=== PATIENT | female | born 1965 | race Caucasian/White ===

== ENCOUNTER 2019-05-09 13:46 | Outpatient (RCR) | payer OTHER, SELFPAY | END 2019-08-07 23:59 | disposition home or self-care (01) | LOC: ANHDMC 13:46 | PROVIDERS: PCP Family Medicine | DX: E11.9 Type 2 diabetes mellitus without complications (principal); Z71.89 Other specified counseling | CPT/HCPCS: G0108 ==

== ENCOUNTER 2019-10-26 07:57 | Outpatient (CLI) | payer OTHER, SELFPAY ==
--- NOTE | ~2019-10-26 | XR_ITS ---
XR foot LT min 3V DATE: 10/26/2019 08:40 INDICATION: Medial left foot pain TECHNIQUE: 4 views COMPARISON: None FINDINGS: Plantar calcaneal enthesopathy, without evidence of periostitis or erosive change. No fracture, dislocation, periosteal reaction or bone destruction. Joint spaces are preserved. No ero sive changes evident. IMPRESSION: Plantar calcaneal enthesopathy Reviewed, dictated and finalized at location A.
[2019-10-26 08:29] LABS: Alanine Aminotransferase 15 U/L (4-35); Blood Urea Nitrogen 11 mg/dL (7-17); Calcium 9.3 mg/dL (8.4-10.2); Carbon Dioxide 30 mmol/L (22-30); Chloride 102 mmol/L (98-107); Cholesterol 121 mg/dL (0-200); Estimated Glomerular Filt Rate > 60; Glucose 149 mg/dL (65-105); HDL Direct 44 mg/dL; Potassium 4.4 mmol/L (3.4-5.0); Sodium 136 mmol/L (137-145); Triglycerides 151 mg/dL (<150)
[2019-10-26 08:40] LABS: LDL Cholesterol Direct 50 mg/dL
[2019-10-26 08:58] LABS: Vitamin D 25 Hydroxy 53.9 ng/mL
== END 2019-10-26 07:58 | disposition home or self-care (01) ==
PROVIDERS: PCP Family Medicine; Visit Provider Family Medicine
DX: E78.5 Hyperlipidemia, unspecified (principal); I10 Essential (primary) hypertension; E55.9 Vitamin D deficiency, unspecified; M79.672 Pain in left foot; M77.32 Calcaneal spur, left foot
CPT/HCPCS: 36415; 73630; 80048; 80061; 82306; 84460

== ENCOUNTER 2020-03-29 08:53 | Outpatient (CLI) | payer OTHER, SELFPAY ==
[2020-03-29 09:38] LABS: Basophils Absolute Auto 0.1 K/mm3 (0.0-0.1); Basophils Percent Auto 0.6 % (0.2-1.2); Eosinophils Absolute Auto 0.4 K/mm3 (0-0.3); Eosinophils Percent Auto 4.7 % (0-4.4); Hematocrit 38.2 % (37.0-47.0); Hemoglobin 12.4 g/dL (12.0-15.0); Immature Granulocyte Absolute 0.02 K/mm3 (0.00-0.031); Immature Granulocyte Percent A 0.2 % (0-0.5); Lymphocytes Absolute Auto 2.42 K/mm3 (0.9-3.2); Lymphocytes Percent Auto 25.8 % (18.3-44.2); Mean Corpuscular HGB Conc 32.5 g/dl (32-36); Mean Corpuscular Hemoglobin 27.3 pg (26-34); Mean Corpuscular Volume 84.1 fl (80-100); Mean Platelet Volume 9.2 fl (7.4-10.4); Monocytes Absolute Auto 0.5 K/mm3 (0.1-0.6); Monocytes Percent Auto 5.5 % (2.6-8.5); Neutrophils Absolute Auto 5.9 K/mm3 (1.3-6.7); Neutrophils Percent Auto 63.2 % (45.5-73.1); Platelet Count Result 245 k/mm3 (150-375); Red Blood Count 4.54 M/mm3 (4.2-5.4); Red Cell Distribution Width 14.7 % (11.5-14.5); White Blood Count 9.4 K/mm3 (4.5-10.0)
[2020-03-29 09:49] LABS: Alanine Aminotransferase 15 U/L (4-35); CRP 0.9 mg/dL (<1.0)
[2020-03-29 10:15] LABS: Creatinine Urine 115.6 mg/dL
[2020-03-29 10:18] LABS: MALB Creatinine Ratio 25.5 mg/g (0-30); Microalbumin Urine Random 29.5 mg/L (0-16.7)
[2020-03-29 10:52] LABS: Folic Acid 5.3 ng/mL (2.76->20)
[2020-03-29 11:27] LABS: Erythrocyte Sedimentation Rate 18 mm/hr (0-20)
[2020-03-29 12:42] LABS: Anion Gap 9 mmol/L (8-16); Blood Urea Nitrogen 13 mg/dL (7-17); Calcium 9.3 mg/dL (8.4-10.2); Carbon Dioxide 26 mmol/L (22-30); Chloride 104 mmol/L (98-107); Cholesterol 137 mg/dL (0-200); Estimated Glomerular Filt Rate > 60; Glucose 136 mg/dL (65-105); HDL Direct 61 mg/dL; Potassium 4.6 mmol/L (3.4-5.0); Sodium 139 mmol/L (137-145); Triglycerides 119 mg/dL (<150)
[2020-03-29 12:53] LABS: LDL Cholesterol Direct 56 mg/dL
== END 2020-03-29 08:54 | disposition home or self-care (01) ==
PROVIDERS: PCP Family Medicine; Visit Provider Internal Medicine Endocrinology, Diabetes & Metabolism
DX: E78.5 Hyperlipidemia, unspecified (principal); F34.1 Dysthymic disorder; R53.83 Other fatigue
CPT/HCPCS: 36415; 80048; 80061; 82043; 82607; 82746; 84443; 84460; 85025; 85652; 86038; 86039; 86140

== ENCOUNTER → 2020-05-31 07:16 | Outpatient (CLI) | payer OTHER, SELFPAY ==
--- NOTE | ~2020-05-31 | MM_ITS ---
EXAMINATION: MM screening zaki BI w chago HISTORY: Screening mammogram TECHNIQUE: Craniocaudal and mediolateral oblique 3-D tomosynthesis images were obtained and synthetic 2-D images were generated. CAD analysis was submitted and interpreted. COMPARISON: 02/20/2019, 12/07/2017, 04/30/2015 bilateral digital screening mammogram examinations BREAST PARENCHYMAL COMPOSITION: There are scattered areas of fibroglandular density. FINDINGS: There are scattered bilateral benign calcifications. There is no evidence of suspicious mas s, calcification, or architectural distortion to suggest malignancy in either breast. There has been no suspicious interval change. IMPRESSION: 1. No mammographic evidence of malignancy. 2. Recommend routine screening mammography in one year. BI-RADS Category 2: Benign finding(s). Reviewed, dictated and finalized at location B. [employer]
== END ==
PROVIDERS: Visit Provider Obstetrics & Gynecology Gynecology
DX: Z12.31 Encounter for screening mammogram for malignant neoplasm of breast (principal)
CPT/HCPCS: 77063; 77067

== ENCOUNTER 2020-12-19 15:14 | Observation (INO) | payer OTHER, SELFPAY ==
[2020-12-19] VITALS (7 sets, daily range): BP systolic 127–178; BP diastolic 63–106; PULSE 78–104; RESP 16–30; TEMP 36.1–36.5; O2SAT 95–99; BMI 43.7
--- NOTE | ~2020-12-19 | XR_ITS ---
EXAMINATION: XR chest 2V DATE: 12/19/2020 15:47 INDICATION: Left-sided chest pain TECHNIQUE: AP and lateral views of the chest are obtained. COMPARISON: 10/21/2018 FINDINGS: The lungs are free of acute opacities. There is no pleural effusion or pneumothorax. The he art size is normal. There are changes of prior cardiac valve surgery. There is mild thoracic spondylo sis. IMPRESSION: 1. No acute cardiopulmonary abnormality. Reviewed, dictated and finalized at location A.
--- NOTE | 2020-12-19 15:30 | ECG_ITS ---
Measurements Intervals [place] Rate: 82 P: 62 MA: 156 QRS: -6 QRSD: 94 T: 82 QT: 377 QTc: 441 Interpretive Statements SINUS RHYTHM ATRIAL AND VENTRICULAR PREMATURE COMPLEXES LEFT VENTRICULAR HYPERTROPHY WITH ST-T CHANGE POOR R WAVE PROGRESSION, ANTERIOR LEADS INFERIOR INFARCT, AGE INDETERMINATE BASELINE ARTIFACT- I, II, III, AVR, AVL, AVF, V1, V6 ABNORMAL ECG Electronically Signed On 12-19-2020 16:59:19 CDT by Beka Ramsay D.O.
[2020-12-19 16:20] LABS: Basophils Absolute Auto 0.1 K/mm3 (0.0-0.1); Basophils Percent Auto 0.4 % (0.2-1.2); Eosinophils Absolute Auto 0.1 K/mm3 (0-0.3); Eosinophils Percent Auto 0.6 % (0-4.4); Hematocrit 43.2 % (37.0-47.0); Hemoglobin 14.1 g/dL (12.0-15.0); Immature Granulocyte Absolute 0.04 K/mm3 (0.00-0.031); Immature Granulocyte Percent A 0.3 % (0-0.5); Lymphocytes Absolute Auto 3.58 K/mm3 (0.9-3.2); Lymphocytes Percent Auto 30.3 % (18.3-44.2); Mean Corpuscular HGB Conc 32.6 g/dl (32-36); Mean Corpuscular Hemoglobin 28.6 pg (26-34); Mean Corpuscular Volume 87.6 fl (80-100); Mean Platelet Volume 9.5 fl (7.4-10.4); Monocytes Absolute Auto 0.5 K/mm3 (0.1-0.6); Monocytes Percent Auto 4.1 % (2.6-8.5); Neutrophils Absolute Auto 7.6 K/mm3 (1.3-6.7); Neutrophils Percent Auto 64.3 % (45.5-73.1); Platelet Count Result 243 k/mm3 (150-375); Red Blood Count 4.93 M/mm3 (4.2-5.4); Red Cell Distribution Width 14.7 % (11.5-14.5); White Blood Count 11.8 K/mm3 (4.5-10.0)
[2020-12-19 16:23] LABS: Prothrombin Time 22.2 Seconds (11.1-14.7)
[2020-12-19 16:24] LABS: Anion Gap 12 mmol/L (8-16); Blood Urea Nitrogen 16 mg/dL (7-17); Calcium 10.5 mg/dL (8.4-10.2); Carbon Dioxide 21 mmol/L (22-30); Chloride 104 mmol/L (98-107); Estimated CRCL calculation 90 ml/min; Estimated Glomerular Filt Rate > 60; Glucose 181 mg/dL (65-110); Potassium 4.6 mmol/L (3.4-5.0); Sodium 137 mmol/L (137-145)
[2020-12-19 16:25] LABS: Partial Thromboplastin Time 33.2 SECONDS (22.3-36.8)
[2020-12-19] MEDS: ASPIRIN 81 MG CHEWABLE TABLET 324 MG PO (18:07)
--- NOTE | 2020-12-19 18:52 | ED.GENADULT ---
HPI - General Adult General Chief complaint: Chest Pain Stated complaint: CP x 1 week Time Seen by Provider: 12/19/20 17:57 Source: patient History of Present Illness HPI narrative: Patient is a 55 y/o female complaining of intermittent chest pain starting last Wednesday. She describes her pain as sharp and twinge . She states that her pain is located in midsternal area with radiation to left neck. She rates her pain as 8/10. There is no known alleviating or exacerbating factor. She has no SOB or cough. Of note, she had CABG and AVR done 3 years ago. Related Data Home Medications Medication Instructions Recorded Confirmed aspirin 81 mg tablet,delayed 81 mg PO DAILY 08/02/19 07/28/20 release metoprolol tartrate 25 mg tablet 25 mg PO BID tablet 08/02/19 07/28/20 trazodone 100 mg tablet 300 mg PO DAILY tablet 11/07/19 07/28/20 lamotrigine 100 mg tablet 100 mg PO DAILY 02/15/20 07/28/20 alprazolam 0.25 mg tablet 0.25 mg PO .prn tablet 04/30/20 07/28/20 warfarin 3 mg tablet 3 mg PO DAILY tablet 04/30/20 07/28/20 folic acid 1 mg tablet 1 mg PO DAILY 06/20/20 07/28/20 methotrexate sodium 2.5 mg tablet 2.5 mg PO WEEKLY 06/20/20 07/28/20 multivitamin with minerals-folic 1 tablet PO DAILY 06/20/20 07/28/20 acid 120 mcg chewable tablet prednisolone 5 mg tablet 5 mg PO DAILY 06/20/20 07/28/20 olopatadine 0.1 % eye drops 1 drp OPHTHALMIC (EYE) BID PRN 09/09/20 warfarin 5 mg tablet 5 mg PO QMWF 09/09/20 Lasix 20 mg BYMOUTH DAILY 12/19/20 12/19/20 tramadol 50 mg BYMOUTH TID PRN 12/19/20 12/19/20 Allergies Allergy/AdvReac Type Severity Reaction Status Date / Time No Known Allergies Allergy Verified 07/23/20 08:34 Review of Systems Constitutional: Constitutional: Denies chills, Denies fever(s), Denies headache(s) and Denies weakness Eyes: Eyes: Denies blurry vision ENT: Denies headache(s) and Denies neck pain Cardiovascular: Cardiovascular: Reports chest pain and Denies dyspnea Respiratory: Respiratory: Denies cough and Denies dyspnea Gastrointestinal: Gastrointestinal: Denies abdominal pain, Denies diarrhea, Denies nausea and Denies vomiting Genitourinary: Genitourinary: Denies hematuria and Denies dysuria Musculoskeletal: Musculoskeletal: Denies back pain and Denies neck pain Neurologic: Denies headache(s) and Denies weakness PMFSH Past Medical History Medical History Aortic regurgitation Arthritis Benign essential HTN CAD in [place] artery Cervical dysplasia Depression Depressive psychosis Diabetes Diabetic retinopathy Fatty liver Heart disease Hyperlipidemia Kidney disease Liver disease Morbid obesity Surgical History Surgical History H/O aortic valve replacement History of open heart surgery 2018 Hx of CABG Hx of hysterectomy Family History Family History Mother Breast cancer COPD (chronic obstructive pulmonary disease) Other Depression Diabetes mellitus Family history of alcoholism Family history of arthritis Family history of attention deficit hyperactivity disorder (ADHD) Family history of blood dyscrasia Family history of coronary artery disease Family history of kidney disease Family history of malignant neoplasm of breast in first degree relative Social History Social History Social History: Smoking status: Never smoker Second hand tobacco smoke exposure: Yes Alcohol intake: current Drinks per week: 2 Substance use: never Substance use type: does not use Gender identity (if verbalized by the patient): Female Spiritual care concerns: No Exam Const: General: no acute distress and well developed Orientation/consciousness: oriented to person, oriented to place, oriented to time and patient oriented x3 HENMT: Head: normocephalic Ears
[2020-12-19 19:03] LABS: Troponin I 0.019 ng/mL (0.000-0.034)
[2020-12-19 19:06] LABS: D Dimer 0.27 ug/mL (<0.48)
--- NOTE | 2020-12-19 19:20 | PC.NURSE ---
This RN called to pts room as pt is having an anxiety attack. Pts states she has PTSD from being here and needs to go home I cant stand all the wires . Pt is clutching chest and is refusing to sit down. Pt is very tearful. Convinced pt to sit back in bed and notified Dr. Esposito. into pt room. Also informed oncoming night nurse of this
[2020-12-19] MEDS: LORazepam INJ (*CRX) 2 MG/ML VIAL 1 MG IV PUSH ×2 (19:41→20:17)
--- NOTE | 2020-12-19 21:35 | ADMGEN ---
This patient, Linnea Frank, was admitted to IMU Room 212-01 at 2130. Patient/family oriented to hospital policies and general routines including ID bracelet, bed and alarms, visiting hours, pain management, procedures, bathroom and other care routines, personal items, smoking policy, room service/diet, and visiting hours. Information on how to activate the Rapid Response Team has been discussed. Patient/Family are encouraged to report perceived risks to care and to ask questions if they do not understand what they are told or what they should do.
--- NOTE | 2020-12-19 22:07 | PC.NURSE ---
patient is inappropriate with comments, will not cooperate. will not stay in bed. is looking out the window and playing with the blinds. patient is climbing all over the bed, literally. patient is extremely confused about most things but can answer some things appropriatly.
[2020-12-19 23:45] LABS: Troponin I 0.018 ng/mL (0.000-0.034)
[2020-12-20] VITALS (7 sets, daily range): BP systolic 124–153; BP diastolic 70–84; PULSE 78–96; RESP 16–20; TEMP 36.1–36.8; O2SAT 94–99
--- NOTE | 2020-12-20 01:17 | PM.IMHP ---
H&P: HPI History of Present Illness Date/Time: 12/20/20 01:17 Chief Complaint: CHEST PAIN Narrative: THIS IS A 55-YEAR-OLD FEMALE WITH PAST MEDICAL HISTORY SIGNIFICANT FOR CORONARY ARTERY DISEASE, CORONARY ARTERY BYPASS GRAFT AND AORTIC VALVE REPAIR, TYPE 2 DIABETES MELLITUS, DYSLIPIDEMIA, DIABETIC RETINOPATHY, OBESITY, BENIGN ESSENTIAL HYPERTENSION. PATIENT PRESENTED TODAY DUE TO CHEST PAIN IT IS LOCALIZED IN THE PRECORDIAL AREA HOWEVER CHANGES WITH DEEP INSPIRATION AND MOVEMENT THIS STARTED EARLIER IN THE DAY SHE WAITED OUT HOPING THAT WILL GO AWAY IN [place] [facility] DID NOT DECIDED TO COME TO THE EMERGENCY ROOM. AT THE TIME OF MY VISIT PATIENT WAS VERY DISTRAUGHT STATING THAT NOBODY WOULD BELIEVE HER DOES SHE HAS CHEST PAIN THE LAST TIME SHE WAS HERE NO VERY BELIEVE HER AND SHE ENDED UP GETTING AND STERNOTOMY AND A BYPASS. PRELIMINARY WORKUP HAS BEEN ESSENTIALLY NONREVEALING TROPONINS HAVE BEEN WITHIN NORMAL LIMITS CHEST X-RAY WITH NO ACUTE CARDIOPULMONARY CHANGES. NO TELEMETRY CHANGES WELL. Review of Systems Review of Systems: PATIENT PRESENTED TO THE EMERGENCY ROOM WITH CHEST PAIN WHICH IS IN THE PRECORDIAL AREA WHICH IS REPRODUCIBLE TO TOUCH AND WITH DEEP INSPIRATION Constitutional: Constitutional: Denies chills and Denies fever(s) Eyes: Eyes: Denies change in vision ENT: Denies dysphagia, Denies nasal congestion, Denies nasal discharge, Denies nasal obstruction and Denies odynophagia Cardiovascular: Cardiovascular: Reports chest pain, Reports chest pain at rest, Denies syncope, Denies rapid heart rate, Denies irregular heart rhythm, Denies lightheadedness, Denies radiating jaw, neck or arm pain, Denies palpitations, Denies dyspnea and Denies dyspnea on exertion Respiratory: Respiratory: Denies cough and Denies dyspnea Gastrointestinal: Gastrointestinal: Denies abdominal pain, Denies diarrhea, Denies nausea and Denies vomiting Genitourinary: Genitourinary: Reports no additional female genitourinary complaints Musculoskeletal: Musculoskeletal: Reports no additional musculoskeletal complaints Integumentary/Breasts: Skin/Breast: Reports system reviewed and no additional complaints, except as docu Neurologic: Reports system reviewed and no additional complaints, except as documented Psychiatric: Psychiatric: Reports no additional psychiatric complaints Endocrine: Endocrine: Reports no additional endocrine complaints Hematologic/Lymphatic: Hematologic/Lymphatic: Reports no additional hematologic/lymphatic complaints Allergic/Immunologic: Allergic/Immunologic: Reports no additional allergic/immunologic complaints PMFSH Past Medical History Medical History Aortic regurgitation Arthritis Benign essential HTN CAD in [place] artery Cervical dysplasia Depression Depressive psychosis Diabetes Diabetic retinopathy Fatty liver Heart disease Hyperlipidemia Kidney disease Liver disease Morbid obesity Surgical History Surgical History H/O aortic valve replacement History of open heart surgery 2018 Hx of CABG Hx of hysterectomy Family History Family History Mother Breast cancer COPD (chronic obstructive pulmonary disease) Other Depression Diabetes mellitus Family history of alcoholism Family history of arthritis Family history of attention deficit hyperactivity disorder (ADHD) Family history of blood dyscrasia Family history of coronary artery disease Family history of kidney disease Family history of malignant neoplasm of breast in first degree relative Social History Social History Social History: Smoking status: Never smoker Second hand tobacco smoke exposure: Yes Alcohol intake: current Drinks per week: 2 Substance use: never Substance use type: does not use Gender ident
--- NOTE | 2020-12-20 08:30 | PM.CNCAR ---
Assessment and Plan Additional Plan this is a 55-year-old lady with valvular heart disease and coronary disease having undergone bypass grafting and aortic valve replacement about 3 years ago. She is doing well since her operation her principal significant comorbidity continues to be ongoing morbid obesity and diabetes. She has been experiencing episodes of chest pain for about a week now after very atypical sounding and not very suggestive of myocardial ischemia in my opinion. In the face of this her electrocardiogram and biomarkers are benign. At this point I believe she can be discharged for outpatient follow-up. Given the recent see of her surgical revascularization and the atypical nature of the symptoms I do not believe we need to keep her in the hospital for further ischemia testing. I will ensure that appropriate follow-up in the office with Dr. escoto is scheduled. Francisco Hewitt MD [facility] History of Present Illness History of Present Illness Consult date/time: 12/20/20 08:30 Consult reason: chest pain Reason For Visit: Chest Pain Narrative: this is a 55-year-old woman that I am seeing at the request of the hospitalists today because of chest pain. She is unknown to me prior to this encounter but has a history of heart disease and is known to Dr. Llamas of our practice. Apparently she has been having episodes of chest pain since last week Wednesday she has been describes episodes of intermittent unpredictable pinching like sensation in the left precordium she describes it as a momentary pinching like pain that comes and goes in an unpredictable manner it is not occurring in in the exertional fashion. It is not associated with any shortness of breath diaphoresis nausea or vomiting. There is no radiation of this pain to any other location. Because of her cardiac history and this is been going on for a week she decided come to the emergency room and be evaluated. Her emergency room evaluation was unrevealing. It was determined to put her in the hospital overnight she then became very anxious when the ER physician told her that she needed to be hospitalized and became somewhat tearful apparently. She has no other complaints at this time she denies any other types of chest pain she denies any orthopnea PND accumulating edema. She has occasional palpitations but that is nothing new she has never had a syncopal episode. Her cardiac history dates back to 2018 when she was here at [facility] with ischemic chest pain and also with ventricular arrhythmias. She was apparently found to have multivessel coronary artery disease and significant aortic valve stenosis and was referred to [facility] for treatment. She underwent a multivessel bypass operation and a mechanical aortic valve prosthesis with a [employer] prosthesis. She has been on Coumadin since then and follows her own INR at home. Her other significant health problems include diabetes mellitus and morbid obesity. She is very frustrated that she has not been able to lose much weight since her heart surgery. Her BMI is still 43.7. she states that she was experiencing some palpitations in the last couple of years since her surgery and because of concerns of these symptoms a stress test was done in the outpatient setting in the office in the nuclear [employer] study which was negative by her report. Review of Systems Constitutional: Constitutional: Reports no additional constitutional complaints Eyes: Eyes: Reports no additional eye complaints ENT: Reports system reviewed and no additional complaints, except as documented Cardiovascular: Cardiovascular: Reports as per HPI Respiratory: Respiratory: Reports no additional respiratory complaints Gastrointestinal: Gastrointestinal: Reports no additional gastrointestinal complaints Musculoskeletal: Musculoskeletal: Reports arthralgias Neurologic: Reports system reviewed and no additional complaints, except a
--- NOTE | 2020-12-20 09:15 | PM.SD2 ---
Same Day Admit/Disch: HPI History of Present Illness Chief complaint: Chest Pain Narrative: Linnea Frank is a 55 year old female Narrative: THIS IS A 55-YEAR-OLD FEMALE WITH PAST MEDICAL HISTORY SIGNIFICANT FOR CORONARY ARTERY DISEASE, CORONARY ARTERY BYPASS GRAFT AND AORTIC VALVE REPAIR, TYPE 2 DIABETES MELLITUS, DYSLIPIDEMIA, DIABETIC RETINOPATHY, OBESITY, BENIGN ESSENTIAL HYPERTENSION. PATIENT PRESENTED TODAY DUE TO CHEST PAIN IT IS LOCALIZED IN THE PRECORDIAL AREA HOWEVER CHANGES WITH DEEP INSPIRATION AND MOVEMENT THIS STARTED EARLIER IN THE DAY SHE WAITED OUT HOPING THAT WILL GO AWAY IN [place] [facility] DID NOT DECIDED TO COME TO THE EMERGENCY ROOM. AT THE TIME OF MY VISIT PATIENT WAS VERY DISTRAUGHT STATING THAT NOBODY WOULD BELIEVE HER DOES SHE HAS CHEST PAIN THE LAST TIME SHE WAS HERE NO VERY BELIEVE HER AND SHE ENDED UP GETTING AND STERNOTOMY AND A BYPASS. PRELIMINARY WORKUP HAS BEEN ESSENTIALLY NONREVEALING TROPONINS HAVE BEEN WITHIN NORMAL LIMITS CHEST X-RAY WITH NO ACUTE CARDIOPULMONARY CHANGES. NO TELEMETRY CHANGES WELL. [facility] Past Medical History Medical History Aortic regurgitation Arthritis Benign essential HTN CAD in [place] artery Cervical dysplasia Depression Depressive psychosis Diabetes Diabetic retinopathy Fatty liver Heart disease Hyperlipidemia Kidney disease Liver disease Morbid obesity Surgical History Surgical History H/O aortic valve replacement History of open heart surgery 2018 Hx of CABG Hx of hysterectomy Family History Family History Mother Breast cancer COPD (chronic obstructive pulmonary disease) Other Depression Diabetes mellitus Family history of alcoholism Family history of arthritis Family history of attention deficit hyperactivity disorder (ADHD) Family history of blood dyscrasia Family history of coronary artery disease Family history of kidney disease Family history of malignant neoplasm of breast in first degree relative Social History Social History Social History: Smoking status: Never smoker Second hand tobacco smoke exposure: Yes Alcohol intake: current Drinks per week: 2 Substance use: never Substance use type: does not use Gender identity (if verbalized by the patient): Female Spiritual care concerns: No Same Day Admit/Disch: Med Pre-admit Medications Home Medications Medication Instructions Recorded Confirmed Type aspirin 81 mg tablet,delayed 81 mg PO DAILY 08/02/19 12/19/20 History release metoprolol tartrate 25 mg tablet 25 mg PO BID tablet 08/02/19 12/19/20 History trazodone 100 mg tablet 300 mg PO DAILY tablet 11/07/19 12/19/20 History lamotrigine 100 mg tablet 100 mg PO DAILY 02/15/20 12/19/20 History alprazolam 0.25 mg tablet 0.25 mg PO .prn tablet 04/30/20 12/19/20 History warfarin 3 mg tablet 3 mg PO DAILY tablet 04/30/20 12/19/20 History blood-glucose sensor #9 each 06/12/20 09/09/20 Rx blood-glucose transmitter #3 each 06/12/20 09/09/20 Rx blood sugar diagnostic #300 ea 06/14/20 07/28/20 Rx folic acid 1 mg tablet 1 mg PO DAILY 06/20/20 12/19/20 History methotrexate sodium 2.5 mg tablet 2.5 mg PO WEEKLY 06/20/20 12/19/20 History multivitamin with minerals-folic 1 tablet PO DAILY 06/20/20 12/19/20 History acid 120 mcg chewable tablet prednisolone 5 mg tablet 5 mg PO DAILY 06/20/20 12/19/20 History linaclotide 290 mcg capsule 290 mcg PO DAILY #30 cap 07/23/20 07/23/20 Rx insulin lispro 100 unit/mL See Rx Instructions CONTINUOUS 09/09/20 12/19/20 Rx subcutaneous solution SUBCUTANEOUS INFUSION DAILY #90 ml metformin 500 mg tablet 1,000 mg PO BID #360 tablet 09/09/20 12/19/20 Rx olopatadine 0.1 % eye drops 1 drp OPHTHALMIC (EYE) BID PRN 09/09/20 History semaglutide 1 mg/dose (2 mg/1.5 1 mg SUBC
== END 2020-12-20 10:06 | disposition home or self-care (01) ==
LOC: ANHED 18:06 → ANHIMU 23:02
PROVIDERS: Admitting Provider Internal Medicine; Emergency Provider Emergency Medicine; PCP Family Medicine; Visit Provider Hospitalist
DX: R07.9 Chest pain, unspecified (principal); I10 Essential (primary) hypertension; I25.10 Atherosclerotic heart disease of native coronary artery without angina pectoris; E11.319 Type 2 diabetes mellitus with unspecified diabetic retinopathy without macular edema; E78.5 Hyperlipidemia, unspecified; E66.01 Morbid (severe) obesity due to excess calories; K76.0 Fatty (change of) liver, not elsewhere classified; M06.9 Rheumatoid arthritis, unspecified; M19.90 Unspecified osteoarthritis, unspecified site; F41.9 Anxiety disorder, unspecified; F32.3 Major depressive disorder, single episode, severe with psychotic features; Z95.2 Presence of prosthetic heart valve; Z79.01 Long term (current) use of anticoagulants; Z95.1 Presence of aortocoronary bypass graft; Z90.710 Acquired absence of both cervix and uterus
CPT/HCPCS: 36415; 71046; 80048; 84484; 85025; 85380; 85610; 85730; 93005; 96374; 96376; 99285; A9270; G0378; J2060

== ENCOUNTER 2020-12-25 09:10 | Outpatient (CLI) | payer OTHER, SELFPAY ==
--- NOTE | ~2020-12-25 | XR_ITS ---
EXAMINATION: XR abdomen/kub 1V INDICATION: Constipation, unspecified TECHNIQUE: Supine views of the abdomen were obtained on 2 radiographs. COMPARISON: 05/04/2006 FINDINGS: A large volume of colonic stool is present. There are no dilated loops of bowel. The bowel gas pattern appears normal. The visualized lung bases are clear. IMPRESSION: 1. Constipation Reviewed, dictated and finalized at location A. IMPRESSION: 1. Constipation
== END 2020-12-25 09:11 | disposition home or self-care (01) ==
PROVIDERS: PCP Family Medicine; Visit Provider Physician Assistant
DX: K59.00 Constipation, unspecified (principal)
CPT/HCPCS: 74018

== ENCOUNTER 2020-12-26 11:08 | Observation (INO) | payer OTHER, SELFPAY ==
[2020-12-26] VITALS (13 sets, daily range): BP systolic 110–194; BP diastolic 71–110; PULSE 62–82; RESP 17–31; TEMP 36.4–36.6; O2SAT 95–98; BMI 43.8
--- NOTE | ~2020-12-26 | CT_ITS ---
EXAMINATION: CT abdomen pelvis w con DATE: 12/26/2020 12:18 INDICATION: Generalized abdominal pain. Constipation for one week. TECHNIQUE: Computed tomography (CT) of the abdomen and pelvis was performed with 100 cc Omnipaque 350 intravenous contrast. Automated exposure control and iterative reconstruction technique were employe d. Exam dose: 1404.70 mGy-cm total exam DLP. COMPARISON: 12/25/2020 KUB 03/25/[address] renal scan FINDINGS: There are bilateral lower lobe calcified pulmonary granulomas. No infiltrate or consolidati on at the lung bases. Status post sternotomy. Mild cardiomegaly. No pericardial or pleural effusion. The liver, gallbladder, spleen, pancreas and bile ducts and pancreatic duct are unremarkable. Normal morphology of the adrenal glands. 2.6 cm probable right renal cyst. 2 cm exophytic upper pole left renal cyst. No urinary tract calculus or hydroureteronephrosis. The urinary bladder is unremarkable. Status post hysterectomy. There is atherosclerotic calcification of the abdominal aorta and iliac arteries but no aneurysm. No intraperitoneal or retroperitoneal or pelvic mass lesion or adenopathy or ascites. Normal appendix. There is a prominent amount of fecal material within the colon. No bowel obstruction is evident. There is short segment narrowing of the distal sigmoid colon lumen with circumferential soft tissue t hickening of the wall. Recommend barium enema or colonoscopy to exclude any possible colon carcinoma. Small fat-containing umbilical hernia. There is a left lower anterior abdominal wall fat-containing hernia. No suspicious osteolytic or osteoblastic lesions. IMPRESSION: Focal narrowing and circumferential soft tissue thickening is suggested in the distal si gmoid colon; perihilar or colonoscopy is recommended to exclude colon carcinoma Prominent amount of fecal material within the colon; no bowel obstruction Cardiomegaly Bilateral renal cysts Status post hysterectomy Small fat-containing umbilical hernia and larger left lower anterior abdominal wall fat-containing he dg Miranda telephoned the report and barium enema or colonoscopy recommendation on 12/26/2020 at 1236 ananya rs to emergency room physician Dr. Ramon. Reviewed, dictated and finalized at [facility]. Reviewed, dictated and finalized at [facility]. IMPRESSION: Focal narrowing and circumferential soft tissue thickening is sugg ested in the distal sigmoid colon; perihilar or colonoscopy is recommended to e xclude colon carcinoma Prominent amount of fecal material within the colon; no bowel obstruction Cardiomegaly Bilateral renal cysts Status post hysterectomy Small fat-containing umbilical hernia and larger left lower anterior abdominal wall fat-containing hernia Dr. Miranda telephoned the report and barium enema or colonoscopy recommendation o n 12/26/2020 at 1236 hours to emergency room physician Dr. Ramon.
--- NOTE | ~2020-12-26 | XR_ITS ---
EXAMINATION: XR chest 1V portable INDICATION: Shortness of breath and chest pain TECHNIQUE: Portable AP chest at 1442 hours COMPARISON: 12/19/2020 FINDINGS: The lungs are free of acute opacities. There is no pleural effusion or pneumothorax. The he art size is normal. Changes of cardiac valve surgery are again noted. IMPRESSION: 1. No acute cardiopulmonary abnormality. Reviewed, dictated and finalized at [facility].
--- NOTE | 2020-12-26 11:24 | ED.GENADULT ---
HPI - General Adult General Chief complaint: Abdominal Pain Stated complaint: abd pain, constipation Time Seen by Provider: 12/26/20 11:16 Source: RN notes reviewed History of Present Illness HPI narrative: Patient presents emergency department from home for abdominal pain. Patient states that she has had dental pain for approximately 1 week that is progressively worsening she is abdominal pain is diffuse throughout the abdomen described as cramping states she is not had a bowel movement in 1 week. States he went to her PCP yesterday and had outpatient x-rays done and was told to come to the emergency department if her pain did not improve patient denies any fevers or chills. States she has had some nausea but denies any vomiting denies any other symptoms at this time Related Data Home Medications Medication Instructions Recorded Confirmed aspirin 81 mg tablet,delayed 81 mg PO DAILY 08/02/19 12/25/20 release metoprolol tartrate 25 mg tablet 25 mg PO BID tablet 08/02/19 12/25/20 trazodone 100 mg tablet 300 mg PO DAILY tablet 11/07/19 12/25/20 lamotrigine 100 mg tablet 100 mg PO DAILY 02/15/20 12/25/20 alprazolam 0.25 mg tablet 0.25 mg PO .prn tablet 04/30/20 12/25/20 folic acid 1 mg tablet 1 mg PO DAILY 06/20/20 12/25/20 multivitamin with minerals-folic 1 tablet PO DAILY 06/20/20 12/25/20 acid 120 mcg chewable tablet olopatadine 0.1 % eye drops 1 drp OPHTHALMIC (EYE) BID PRN 09/09/20 12/25/20 tramadol 50 mg BYMOUTH TID PRN 12/19/20 12/25/20 docusate sodium 50 mg capsule 150 mg PO DAILY cap 12/25/20 12/25/20 golimumab 12.5 mg/mL intravenous IV 12/25/20 12/25/20 solution prednisone 5 mg tablet 10 mg PO DAILY tablet 12/25/20 12/25/20 warfarin 3 mg tablet 3 mg PO .COMPLEX tablet 12/25/20 12/25/20 warfarin 5 mg tablet 5 mg PO .COMPLEX 12/25/20 12/25/20 Allergies Allergy/AdvReac Type Severity Reaction Status Date / Time No Known Allergies Allergy Verified 12/26/20 11:23 Review of Systems Review of Systems: Gen.: Denies fevers or chills ENT: Denies congestion Respiratory: Denies shortness of breath or cough CV: Denies chest pain or palpitations GI: See HPI denies burning, urgency, frequency or hematuria Musculoskeletal: Denies back pain or muscle pain Neuro: Denies numbness, tingling, weakness or focal weakness Skin: Denies rash Except as documented, all other systems reviewed and negative [facility] Past Medical History Medical History Aortic regurgitation Arthritis Benign essential HTN CAD in [place] artery Cervical dysplasia Depression Depressive psychosis Diabetes Diabetic retinopathy Fatty liver Heart disease Hyperlipidemia Kidney disease Liver disease Morbid obesity Surgical History Surgical History H/O aortic valve replacement History of open heart surgery 2018 Hx of CABG Hx of hysterectomy Family History Family History Mother Breast cancer COPD (chronic obstructive pulmonary disease) Other Depression Diabetes mellitus Family history of alcoholism Family history of arthritis Family history of attention deficit hyperactivity disorder (ADHD) Family history of blood dyscrasia Family history of coronary artery disease Family history of kidney disease Family history of malignant neoplasm of breast in first degree relative Social History Social History Social History: Second hand tobacco smoke exposure: Yes Alcohol intake: current Drinks per week: 2 Substance use: never Substance use type: does not use Gender identity (if verbalized by the patient): Female Spiritual care concerns: No Exam Narrative: APPEARANCE: No acute distress, nontoxic, resting in bed HEENT: Normocephalic, atraumatic, OMM RESPIRATORY: No respiratory distress, c
[2020-12-26] MEDS: SODIUM CHLORIDE 0.9% IV 1,000 ML 999 ML IV CONT (11:42)
[2020-12-26 11:51] LABS: Basophils Absolute Auto 0.1 K/mm3 (0.0-0.1); Basophils Percent Auto 0.6 % (0.2-1.2); Eosinophils Absolute Auto 0.2 K/mm3 (0-0.3); Eosinophils Percent Auto 2.1 % (0-4.4); Hematocrit 39.8 % (37.0-47.0); Hemoglobin 12.8 g/dL (12.0-15.0); Immature Granulocyte Absolute 0.03 K/mm3 (0.00-0.031); Immature Granulocyte Percent A 0.3 % (0-0.5); Mean Corpuscular HGB Conc 32.2 g/dl (32-36); Mean Corpuscular Hemoglobin 28.4 pg (26-34); Mean Corpuscular Volume 88.2 fl (80-100); Mean Platelet Volume 9.5 fl (7.4-10.4); Monocytes Absolute Auto 0.6 K/mm3 (0.1-0.6); Neutrophils Absolute Auto 4.9 K/mm3 (1.3-6.7); Platelet Count Result 221 k/mm3 (150-375); Red Blood Count 4.51 M/mm3 (4.2-5.4); Red Cell Distribution Width 14.6 % (11.5-14.5); White Blood Count 10.7 K/mm3 (4.5-10.0)
[2020-12-26 12:01] LABS: Alanine Aminotransferase 25 U/L (4-35); Albumin Level 4.3 g/dL (3.5-5.1); Alkaline Phosphatase 76 U/L (38-126); Anion Gap 5 mmol/L (8-16); Aspartate Amino Transferase 28 U/L (14-36); Bilirubin,Total 0.4 mg/dL (0.2-1.3); Blood Urea Nitrogen 6 mg/dL (7-17); Calcium 9.7 mg/dL (8.4-10.2); Carbon Dioxide 27 mmol/L (22-30); Chloride 103 mmol/L (98-107); Estimated CRCL calculation 91 ml/min; Estimated Glomerular Filt Rate > 60; Glucose 164 mg/dL (65-110); Lipase 188 U/L (23-300); Potassium 3.7 mmol/L (3.4-5.0); Sodium 135 mmol/L (137-145)
[2020-12-26 12:08] LABS: Add Urine Microscopic? YES; Appearance Urine Clear (Clear); Bacteria Urine Trace /hpf; Bilirubin Urine Negative (Negative); Blood Urine Negative (Negative); Color Urine Straw (Yellow); Glucose Urine UA Negative (Negative); Ketones Urine Negative (Negative); Leukocyte Esterase Ur 1+ LEU/UL (Negative); Nitrate Urine Negative (Negative); Protein Urine Negative (Negative); RBC Urine 0-2 /hpf (0-2); Squamous Epithelial Cell Urine Rare /hpf (Few); Urobilinogen Urine Negative mg/dL (<2.0)
[2020-12-26 12:31] LABS: Specific Grav Ur 1.003 (1.001-1.035)
--- NOTE | 2020-12-26 14:25 | ECG_ITS ---
Measurements Intervals [place] Rate: 78 P: 61 ME: 160 QRS: -7 QRSD: 94 T: 84 QT: 386 QTc: 442 Interpretive Statements SINUS RHYTHM LEFT VENTRICULAR HYPERTROPHY WITH ST-T CHANGE CANNOT RULE OUT SEPTAL INFARCT, AGE INDETERMINATE BASELINE ARTIFACT- I, II, III, AVR, AVL, AVF, V1-V6 ABNORMAL ECG Electronically Signed On 12-26-2020 15:30:32 CDT by Beka Ramsay D.O.
--- NOTE | 2020-12-26 14:40 | PC.NURSE ---
This RN to room to DC pt. Pt sitting on a stool on the side of the bed. pt very anxious. Pt states Im fine I just want to go home IV taking out and start to go over DC papers. Pt holding chest and moaning. This RN asks what is wrong. Pt states its just my anxiety I just need to go, Im fine Pt then closes eyes and leans over and gets startled and opens eyes. This RN asks pt if she has taken any medication since being here. She states no. This RN states I don't feel comfortable with you leaving if you are acting like this. Pt states Im fine Im its just my anxiety Pt does this again and this RN calls Dr. Ramon to reevaluate. In front of Dr. Ramon pt again almost falls out of chair. Dr. Ramon states that he is going to keep her in the hospital. Pt begins to cry and states that she doesn't want to stay and is ok. RN gets pt to sit in bed and get hooked up to the monitor.
[2020-12-26] MEDS: LORazepam INJ (*CRX) 2 MG/ML VIAL 0.5 MG IV PUSH (14:58)
[2020-12-26 15:02] LABS: INR 2.3; Partial Thromboplastin Time 35.4 SECONDS (22.3-36.8); Prothrombin Time 24.8 Seconds (11.1-14.7)
[2020-12-26 15:10] LABS: Troponin I < 0.012 ng/mL (0.000-0.034)
--- NOTE | 2020-12-26 15:15 | PM.IMHP ---
H&P: HPI History of Present Illness Date/Time: 12/26/20 15:15 Chief Complaint: Abdominal discomfort and constipation. Narrative: This is a 55-year-old female with history of coronary artery disease status post three-vessel bypass, aortic valve stenosis status post mechanical aortic valve replacement on warfarin, obstructive sleep apnea on CPAP, insulin-dependent diabetes, rheumatoid arthritis, hypertension, dyslipidemia, major depressive disorder, and complex PTSD related to previous hospitalization in 2018 who presented to the emergency department earlier today via private vehicle from home for evaluation of abdominal discomfort and constipation. She has had intermittent issues with irritable bowel syndrome with constipation over the years but it has not bothered her ?in quite some time.? Over the past week or so she has had generalized, cramping abdominal discomfort and reports not having a bowel movement for at least 1 week. Outpatient x-rays done yesterday showed a large volume of colonic stool and despite 3 enemas and 1 suppository in the last 24 hours, she has not had a bowel movement. Today a CT of the abdomen and pelvis showed suggestions of focal narrowing and circumferential soft tissue thickening in the distal sigmoid colon as well as a prominent amount of fecal material within the colon though no evidence of bowel obstruction. With further questioning the patient reports having a normal colonoscopy within the last several years though it does not look like it was done at this facility. She had a negative Cologuard thereafter. Weight has remained stable. No melena or hematochezia. She has no known family history of colon cancer. She has no personal history of inflammatory bowel disease or diverticulitis. She has not had nausea or vomiting. Of note, the patient was initially going to be discharged from the emergency department with plans for outpatient colonoscopy per Dr. Gill. When the ER nurse went to discharge her, the patient was extremely anxious and complained of crushing midsternal chest pain and shortness of breath. I was then called to admit the patient and at the time my evaluation she was in tears and difficult to console. She repeatedly said that she was ?crazy? and that she could not handle being in the hospital as her PTSD is related to her prior hospitalization when she had her bypass and aortic valve replacement. Several times I witnessed the patient holding her breath to the point where she became near syncopal. After about 20 minutes I was able to get the patient to calm enough to have a discussion and she agreed to stay in the hospital. She is no longer having chest pain and she denies recent exertional chest pain. She still complains of feeling short of breath but attributes that to her high anxiety. No cough. No COVID exposure. Review of Systems Review of Systems: Twelve systems were reviewed with pertinent positives and negatives as per HPI. Weight has remained stable. No fever, chills, or sweats. She denies recent cold and flu symptoms. She reports issues with memory loss over the past couple of years since her bypass surgery. Since that time she has also had night terrors and was diagnosed with complex PTSD related to her hospitalization in 2018 in which she had bypass and aortic valve replacement. She denies homicidal and suicidal ideation. She has not had pleuritic pain or palpitations. No orthopnea, PND, or lower extremity edema. She has had some nausea but no vomiting. Constipation as detailed above. Patient uses an insulin pump. No blurry vision, polydipsia, or polyuria. Except as documented, all other systems were reviewed and are negative. PENDING SALE TO [facility] Past Medical History Medical History (Updated 12/26/20 @ 20:50 by Corry Peck PA-C) Anxiety Arthritis Benign essential hypertension Complex posttraumatic stress disorder Coronary artery disease Status post 3 vessel bypass in 2018 at [facility]. Current use of half-way a
--- NOTE | 2020-12-26 19:19 | PC.NURSE ---
Left message with Dr. Gill to clarify the medication order he put in.
[2020-12-26] MEDS: polyethylene glycoL 3350 238 GM BOTTLE PO (21:29)
[2020-12-26 22:38] LABS: Troponin I 0.016 ng/mL (0.000-0.034)
--- NOTE | 2020-12-26 22:45 | ADMGEN ---
This patient, Linnea Frank, was admitted to IMU Room 206-01. Patient/family oriented to hospital policies and general routines including ID bracelet, bed and alarms, visiting hours, pain management, procedures, bathroom and other care routines, personal items, smoking policy, room service/diet, and visiting hours. Information on how to activate the Rapid Response Team has been discussed. Patient/Family are encouraged to report perceived risks to care and to ask questions if they do not understand what they are told or what they should do.
[2020-12-26] MEDS: BISACODYL 5 MG TABLET EC 10 MG PO (23:23)
[2020-12-27] VITALS (19 sets, daily range): BP systolic 121–150; BP diastolic 61–77; PULSE 61–83; RESP 15–26; TEMP 35.9–36.7; O2SAT 95–100
[2020-12-27] MEDS: METOPROLOL TARTRATE 25 MG TABLET PO (00:40)
[2020-12-27] MEDS: ENOXAPARIN 120 MG/0.8 ML SYRINGE 110 MG SUB-Q (00:41)
[2020-12-27] MEDS: traZODone HCL 50 MG TABLET 300 MG PO (00:41)
[2020-12-27] MEDS: VENLAFAXINE HCL XR 75 MG CAP.ER.24H PO (00:41)
[2020-12-27] MEDS: ALPRAZolam (*CRX) 0.25 MG TABLET PO (00:46)
[2020-12-27 05:13] LABS: Hematocrit 39.9 % (37.0-47.0); Mean Corpuscular HGB Conc 32.6 g/dl (32-36); Mean Corpuscular Hemoglobin 28.6 pg (26-34); Mean Corpuscular Volume 87.7 fl (80-100); Mean Platelet Volume 9.4 fl (7.4-10.4); Platelet Count Result 245 k/mm3 (150-375); Red Blood Count 4.55 M/mm3 (4.2-5.4); Red Cell Distribution Width 14.6 % (11.5-14.5); White Blood Count 10.7 K/mm3 (4.5-10.0)
[2020-12-27 05:22] LABS: Prothrombin Time 22.2 Seconds (11.1-14.7)
[2020-12-27 05:26] LABS: Anion Gap 7 mmol/L (8-16); Blood Urea Nitrogen 5 mg/dL (7-17); Calcium 9.7 mg/dL (8.4-10.2); Carbon Dioxide 25 mmol/L (22-30); Chloride 103 mmol/L (98-107); Estimated CRCL calculation 105 ml/min; Estimated Glomerular Filt Rate > 60; Glucose 155 mg/dL (65-110); Magnesium 1.7 mg/dL (1.6-2.3); Potassium 4.3 mmol/L (3.4-5.0); Sodium 135 mmol/L (137-145)
--- NOTE | 2020-12-27 07:02 | WPDGICN ---
Assessment and Plan Assessment and plan (1) Abnormal CT scan, colon: Code(s): R93.3 - Abnormal findings on diagnostic imaging of other parts of digestive tract Status: Acute Assessment and Plan: I discussed the findings with the patient. She is aware that she may have a malignancy. We discussed colonoscopy. She has completed most of her prep but we are awaiting for the Citrate of magnesium. I explained the possible complications such as bleeding or perforation or the need for surgery to correct a complication. Will cover her with antibiotics because of the aortic valve replacement (2) Coronary artery disease: Code(s): I25.10 - Atherosclerotic heart disease of [place] coronary artery without angina pectoris Status: Acute Assessment and Plan: her troponins are i negative. She was recently seen by Cardiology and no new issues were uncovered. GI Consult Note Consult date/time: 12/27/20 07:02 HPI: Linnea Rey is a 55 year old female Who presented to the emergency room with complaints of abdominal pain constipation and not being able to have a bowel movement. She has had increasing abdominal discomfort. She has very small bowel movements. Outpatient x-ray showed a large amount of stool and the enemas at home did not help at all. CT scan done in the emergency room shows focal narrowing in the distal sigmoid colon suggestive of a possible malignancy. The patient has no lower abdominal pain but does complain of a knot type discomfort in her upper flanks at the costal margins bilaterally which she notices particularly if she sits up. Also standing makes the upper abdomen heart across the upper 3rd. She has had no blood in her stools. She had a colonoscopy several years ago but cannot recall where or exactly when. A couple years ago she had aortic valve replaced and had a coronary bypass. She in fact was recently hospitalized with atypical chest pain but cardiology did not feel that it was related to coronary disease. Yesterday in the emergency room she was going to be discharged to have her workup completed as an outpatient but then she had some chest discomfort and apparently a panic attack. She does have a history of PTSD. At this time however she is relaxed and comfortable Review of Systems Review of Systems: All systems reviewed & are unremarkable except as noted in HPI and below PMFSH Past Medical History Medical History Anxiety Arthritis Benign essential hypertension Complex posttraumatic stress disorder Coronary artery disease Status post 3 vessel bypass in 2018 at [facility]. Current use of longterm anticoagulation Patient on warfarin due to presence of mechanical aortic valve. Depression Depressive psychosis Diabetic retinopathy Fatty liver Hyperlipidemia Insulin dependent diabetes mellitus Hemoglobin A1c was 7.2% on 09/09/2020. Morbid obesity Rheumatoid arthritis Surgical History Surgical History History of coronary artery bypass graft x 3 (2018) History of hysterectomy for benign disease History of mechanical aortic valve replacement (2018) Family History Family History Mother Breast cancer COPD (chronic obstructive pulmonary disease) Other Depression Diabetes mellitus Family history of alcoholism Family history of arthritis Family history of attention deficit hyperactivity disorder (ADHD) Family history of blood dyscrasia Family history of coronary artery disease Family history of kidney disease Family history of malignant neoplasm of breast in first degree relative Social History Social History Social History: Surrogate decision maker: Lloyd Rey, spouse. Code status: Full code. Smoking status: Never smoker Alc
[2020-12-27] MEDS: MAGNESIUM CITRATE 300 ML BTL PO (07:49)
--- NOTE | 2020-12-27 10:16 | WPDANESEPPF ---
Anes - Initial Pre Proc Eval Procedure: Operation Date: 12/27/20 13:30 Proposed Procedures p Colonoscopy - Macario Gill MD Date/Time: 12/27/20 10:16 Surgeon: Dimitris Morillo MD Pre Op Diagnosis: Colonic mass, chest pain Patient Data Age: 55 Gender: F Height: 1.57 m Weight: 108.8 kg Last Vital Signs Temp 35.9 C L 12/27/20 07:58 Pulse 67 12/27/20 07:58 Resp 20 12/27/20 07:58 BP 141/77 H 12/27/20 07:58 Pulse Ox 100 12/27/20 07:58 Allergies Allergy/AdvReac Type Severity Reaction Status Date / Time No Known Allergies Allergy Verified 12/27/20 13:15 Home Medications Medication Instructions Recorded Confirmed Type aspirin 81 mg tablet,delayed 81 mg PO DAILY 08/02/19 12/26/20 History release metoprolol tartrate 25 mg tablet 25 mg PO BID tablet 08/02/19 12/26/20 History trazodone 100 mg tablet 300 mg PO HS tablet 11/07/19 12/27/20 History lamotrigine 100 mg tablet 100 mg PO DAILY 02/15/20 12/26/20 History alprazolam 0.25 mg tablet 0.25 mg PO .prn tablet 04/30/20 12/26/20 History folic acid 1 mg tablet 1 mg PO DAILY 06/20/20 12/26/20 History multivitamin with minerals-folic 1 tablet PO DAILY 06/20/20 12/26/20 History acid 120 mcg chewable tablet insulin lispro 100 unit/mL See Rx Instructions CONTINUOUS 09/09/20 12/26/20 Rx subcutaneous solution SUBCUTANEOUS INFUSION DAILY #90 ml metformin 500 mg tablet 1,000 mg PO BID #360 tablet 09/09/20 12/26/20 Rx rosuvastatin 20 mg tablet 20 mg PO DAILY #90 tablet 09/18/20 12/26/20 Rx losartan 25 mg tablet 25 mg PO DAILY #90 tablet 12/23/20 12/26/20 Rx golimumab 12.5 mg/mL intravenous 12.5 mg IV [id number] 12/25/20 12/26/20 History solution prednisone 5 mg tablet 10 mg PO DAILY tablet 12/25/20 12/26/20 History warfarin 3 mg tablet 3 mg PO .COMPLEX tablet 12/25/20 12/26/20 History warfarin 5 mg tablet 5 mg PO .COMPLEX 12/25/20 12/26/20 History methotrexate sodium 7.5 mg PO WEEKLY 12/26/20 12/26/20 History nitroglycerin 0.4 mg SUBLINGUAL Q5M PRN 12/26/20 12/26/20 History tramadol 100 mg PO TID PRN 12/26/20 12/26/20 History venlafaxine 75 mg PO QPM 12/27/20 12/27/20 History Laboratory Tests 12/26/20 12/26/20 12/26/20 11:36 11:39 11:39 WBC 10.7 K/mm3 H K/mm3 (4.5-10.0) RBC 4.51 M/mm3 M/mm3 (4.2-5.4) Hgb 12.8 g/dL g/dL (12.0-15.0) Hct 39.8 % % (37.0-47.0) MCV 88.2 fl fl (80-100) MCH 28.4 pg pg (26-34) MCHC 32.2 g/dl g/dl (32-36) RDW 14.6 % H % (11.5-14.5) Plt Count 221 k/mm3 k/mm3 (150-375) MPV 9.5 fl fl (7.4-10.4) Immature Gran % (Auto) 0.3 % % (0-0.5) Neut % (Auto) 46.0 % % (45.5-73.1) Lymph % (Auto) 45.0 % H % (18.3-44.2) [place] % (Auto) 6.0 % % (2.6-8.5) Eos % (Auto) 2.1 % % (0-4.4) Baso % (Auto) 0.6 % % (0.2-1.2) Lymph # (Auto) 4.80 K/mm3 H K/mm3 (0.9-3.2) [place] # (Auto) 0.6 K/mm3 K/mm3 (0.1-0.6) Eos # (Auto) 0.2 K/mm3 K/mm3 (0-0.3) Baso # (Auto) 0.1 K/mm3 K/mm3 (0.0-0.1) Abs Immat Gran (auto) 0.03 K/mm3 K/mm3 (0.00-0.031) Absolute Neuts (auto) 4.9 K/mm3 K/mm3 (1.3-6.7) Absolute Nucleated RBC 0.0 K/mm3 K/mm3 (0.0-0.012) Nucleated RBC % 0.0 % % (0.0-0.2) PT INR APTT Sodium Cancelled Potassium Cancelled Chloride Cancelled Carbon Dioxide Cancelled Anion Gap Cancelled BUN Cancelled Creatinine Cancelled Estim Creat Clear Calc Cancelled Estimated GFR Cancelled Glucose Cancelled Calcium Cancelled Magnesium Total Bilirubin Cancelled AST Cancelled ALT Cancelled Alkaline Phosphatase Cancelled Troponin I Total Protein
--- NOTE | 2020-12-27 10:33 | PM.IMPN ---
Progress Note: A&P Assessment and Plan (1) Constipation: Code(s): K59.00 - Constipation, unspecified Status: Acute Assessment and Plan: Despite 3 enemas and a suppository in the last 24 hours she has not yet had a bowel movement. CT Abdomen showing a focal narrowing and circumferential soft tissue thickening in the distal sigmoid colon. Consider scarring/stricture or colon CA. Cologuard negative 2 yrs ago. Colonoscopy today. (2) Abnormal computed tomography of abdomen and pelvis: Code(s): R93.5 - Abnormal findings on diagnostic imaging of other abdominal regions, including retroperitoneum Status: Acute Assessment and Plan: As above, CT shows focal narrowing and circumferential soft tissue thickening in the distal sigmoid colon. Dr. Gill consulted for colonoscopy today. (3) Chest pain: Qualifiers: Chest pain type: unspecified Qualified Code(s): R07.9 - Chest pain, unspecified Code(s): R07.9 - Chest pain, unspecified Status: Acute Assessment and Plan: Related to her severe anxiety/PTSD. Troponins negative x3. EKG shows no acute ST segment changes. 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 INR today is 2.0 with goal being 2.0-3.0. Warfarin is on hold for colonoscopy today. Lovenox, 1 milligram/kilogram x1 was given last evening. Resume Coumadin tonight. Heparin to bridge if needed. (5) Insulin dependent diabetes mellitus: Status: Acute Assessment and Plan: A1c was 7.2% in August. Glucose reviewed on 12/27. Glucose well controlled. Continue insulin pump at basal rate. Continue Accu-Cheks and hypoglycemic protocol. (6) Benign essential hypertension: Code(s): I10 - Essential (primary) hypertension Status: Acute Assessment and Plan: Blood pressure reviewed on 12/27. BP mildly elevated at times. Continue antihypertensives and monitor closely. (7) Psychiatric illness: Code(s): F99 - Mental disorder, not otherwise specified Status: Acute Assessment and Plan: Including anxiety, depression, and complex PTSD. Continue lamotrigine, venlafaxine and trazodone. Alprazolam available as needed. She states her symptoms are better with in the room. (8) Coronary artery disease: Code(s): I25.10 - Atherosclerotic heart disease of [place] coronary artery without angina pectoris Status: Acute Assessment and Plan: No acute issues. Troponins negative. EKG showing no acute changes. Chest pain probably related to her anxiety. Continue aspirin, beta-fernandez, and statin. (9) Rheumatoid arthritis: Qualifiers: Rheumatoid arthritis location: multiple sites Rheumatoid factor presence: with rheumatoid factor Qualified Code(s): M05.79 - Rheumatoid arthritis with rheumatoid factor of multiple sites without organ or systems involvement Code(s): M06.9 - Rheumatoid arthritis, unspecified Status: Acute Assessment and Plan: Steroid dependent. No acute issues. Continue prednisone. do not believe she needs stress dose steroids at this time. Subjective Date/time seen: 12/27/20 10:33 Interval history: 55yo female with CAD, s/p mechanical AVR on Coumadin, LORRIE, DM and RA here for abdominal and chest pain. patient was hospitalized here on December 20 for chest pain. EKG showing no acute changes and troponins were negative x3. Cardiology did see the patient did not feel further evaluation was required at that time. Patient returns to the in emergency room consider complaints of chest pain and abdominal pain. She has been constipated. She has been seen by her primary care provider and medications have been adjusted. Patient noted to have distal sigmoid
--- NOTE | 2020-12-27 11:12 | PM.CNCAR ---
Assessment and Plan Additional Plan this is a 55-year-old woman admitted to the hospital with abdominal discomfort worsening following taking Linzess. She has been found to have sigmoid colon stricture by CT scan and is anticipating endoscopic evaluation of this later today. We were consulted to comment on anticoagulation management as she has a mechanical aortic valve. For the time being I do not think there is anything to suggest specifically regarding her cardiac status. Obviously if she is found to have a colon malignancy her Coumadin will have to be stopped and then she will have to be heparinized when her INR declines until surgical treatment is completed. Obviously we hope that she is not found to have a colon malignancy. Further recommendations will be pending completion of her endoscopy later today Francisco Hewitt MD [facility] History of Present Illness History of Present Illness Consult date/time: 12/27/20 11:12 Reason For Visit: Colonic mass, chest pain Narrative: This is a 55-year-old woman were seeing in consultation at the request of the hospitalist and gastroenterology consultants because she has a mechanical aortic valve prosthesis and is in need of colon workup for sigmoid colon stricture and suspected mass. She is known to me from a recent consultation at this hospital just within the last week or so. She is known to have coronary artery disease and valvular heart disease and normally follows in our office with Dr. Llamas. the patient was found to have heart disease in 2018 when she presented [facility] with ischemic chest pain and ventricular arrhythmias. She was found to have significant aortic stenosis and multivessel coronary disease and was referred over to [facility]. She received a mechanical aortic valve prosthesis and a 3 vessel bypass operation and since then has done well. The patient does have a psychiatric history in that rather unusually she apparently developed post-traumatic stress disorder following her heart surgery. about a week ago she came to this hospital with intermittent chest pain that I thought was very atypical of angina and not suggestive of myocardial ischemia. She had no objective evidence of an acute coronary syndrome and I did not recommend any ischemic workup at that time. She followed up with her PCP and rib reporting symptoms of constipation. She was apparently found to have a colon full of stool and was started on medication for that. She came to the emergency room with worsening abdominal pain. She had a abdominal CT that demonstrated a his sigmoid colon stricture and a suspected mass. The plan was to discharge her for outpatient further workup of this but then she became anxious and panicky in the emergency room and the decision was made to admit her to the hospital. Of course she takes warfarin because of her mechanical aortic valve. The INR is 2.0. She underwent a colon prep last evening and is still about to get a Fleet's enema in a short time and then the plan is later to take her to the GI lab for colonoscopy for to evaluate her colon stricture. Review of Systems Constitutional: Constitutional: Reports no additional constitutional complaints Eyes: Eyes: Reports no additional eye complaints ENT: Reports system reviewed and no additional complaints, except as documented Cardiovascular: Cardiovascular: Reports as per HPI Respiratory: Respiratory: Reports no additional respiratory complaints Gastrointestinal: Gastrointestinal: Reports as per HPI and Reports constipation Musculoskeletal: Musculoskeletal: Reports no additional musculoskeletal complaints Integumentary/Breasts: Skin/Breast: Reports system reviewed and no additional complaints, except as docu Neurologic: Reports system reviewed and no additional complaints, except as documented Psychiatric: Psychiatric: Reports anxiety Endocrine: Endocrine: Reports no additional endoc
[2020-12-27] MEDS: SODIUM CHLORIDE 0.9% IV 250 ML 30 ML IV CONT (11:13)
[2020-12-27] MEDS: LACTATED RINGERS 1,000 ML 150 ML IV CONT (13:18)
[2020-12-27] MEDS: AMPICILLIN 2 GM/NS 100 ML 2 GM/100 ML BAG IVPB (13:19)
--- NOTE | 2020-12-27 13:22 | SUR.PREOP ---
Per Beatris, BS reading 191.
--- NOTE | 2020-12-27 13:24 | SUR.PREOP ---
Dr. Gill was notified that pt reports liquid, but not clear stools. Also notified pt did not receive enema as ordered. no new orders.
[2020-12-27] MEDS: GENTAMICIN 80MG/SOD CHL 50 ML 80 MG/50 ML BAG 100 MG IVPB (13:59)
[2020-12-27 14:16] LABS: Glucose Point of Care 152 mg/dl (65-105)
--- NOTE | 2020-12-27 16:31 | PM.DS ---
DS: Admitting Diagnosis Admitting Diagnosis Abdominal pain DS: Discharge Diagnosis Discharge Diagnosis (1) Constipation: Code(s): K59.00 - Constipation, unspecified Status: Acute Assessment and Plan: Patient presented here with complaints of abdominal pain and inability to have BM. Despite 3 enemas and a suppository in the last 24 hours prior to admission, she has not yet had a bowel movement. In the ED, she had a CT Abdomen/Pelvis showing a focal narrowing and circumferential soft tissue thickening in the distal sigmoid colon. Cologuard negative 2 yrs ago. Colonoscopy performed today showing mid transverse colon polyp. Patient tolerated the procedure well. She is requesting discharge this evening. (2) Abnormal computed tomography of abdomen and pelvis: Code(s): R93.5 - Abnormal findings on diagnostic imaging of other abdominal regions, including retroperitoneum Status: Acute Assessment and Plan: As above, CT shows focal narrowing and circumferential soft tissue thickening in the distal sigmoid colon but nothing noted by Colonoscopy. (3) Chest pain: Qualifiers: Chest pain type: unspecified Qualified Code(s): R07.9 - Chest pain, unspecified Code(s): R07.9 - Chest pain, unspecified Status: Acute Assessment and Plan: Related to her severe anxiety/PTSD. Troponins negative x3. EKG shows no acute ST segment changes. Symptoms have resolved. Cardiology was consulted but no plan for ischemic evaluation. (4) Current use of half-way anticoagulation: Code(s): Z79.01 - FDC (current) use of anticoagulants Status: Acute Assessment and Plan: Patient is on warfarin status post mechanical aortic valve replacement. INR today is 2.0 with goal being 2.0-3.0. Warfarin was on hold for colonoscopy today. Lovenox, 1 milligram/kilogram x1 was given last evening. Resume Coumadin tonight. (5) Insulin dependent diabetes mellitus: Status: Acute Assessment and Plan: A1c was 7.2% in August. Glucose monitored closely and it remained well controlled. Continue insulin pump at discharge. (6) Benign essential hypertension: Code(s): I10 - Essential (primary) hypertension Status: Acute Assessment and Plan: Blood pressure monitored closely and was mildly elevated at times. We continued her antihypertensives. (7) Psychiatric illness: Code(s): F99 - Mental disorder, not otherwise specified Status: Acute Assessment and Plan: Including anxiety, depression, and complex PTSD. We continued lamotrigine, venlafaxine and trazodone. Alprazolam was available as needed. (8) Coronary artery disease: Code(s): I25.10 - Atherosclerotic heart disease of [place] coronary artery without angina pectoris Status: Acute Assessment and Plan: Hx of CAD s/p CABG [id number]. No acute issues. Troponins negative. EKG showing no acute changes. Chest pain probably related to her anxiety. We continued aspirin, beta-fernandez, and statin. (9) Rheumatoid arthritis: Qualifiers: Rheumatoid arthritis location: multiple sites Rheumatoid factor presence: with rheumatoid factor Qualified Code(s): M05.79 - Rheumatoid arthritis with rheumatoid factor of multiple sites without organ or systems involvement Code(s): M06.9 - Rheumatoid arthritis, unspecified Status: Acute Assessment and Plan: Steroid dependent. No acute issues. We continued prednisone. DS: Summary Hospital Course Reason for hospitalization: 55yo female with CAD, s/p mechanical AVR on Coumadin, LORRIE, DM and RA here for abdominal and chest pain. Please see H&P for details. Hospital Course: Please see above for details of hospital course. Status at Discharge Cognitive/behavioral status at discharge: stable Time Spent with Patient Time attestation: Total time spent providing and/or coordinating discha
--- NOTE | 2020-12-30 14:26 | PC.NURSE ---
Showed urine culture to Dr. Morillo. Ordered Keflex 500 mg TID for 5 days po. Spoke with patient explaining she has an UTI. Patient states understanding and agreeable to take medication. Called script into [facility] in [place].
--- NOTE | 2021-01-02 13:30 | PC.NURSE ---
Pathology shows Tubular Adenoma. Dr. Yisel robert.
--- NOTE | 2021-01-03 09:09 | PC.NURSE ---
Pathology report faxed to Dr. Stephens.
== END 2020-12-27 17:44 | disposition home or self-care (01) ==
LOC: ANHED 16:39 → ANHIMU 18:45
PROVIDERS: Internal Medicine Gastroenterology; Physician Assistant; Admitting Provider Internal Medicine; Emergency Provider Emergency Medicine; PCP Family Medicine; Visit Provider Internal Medicine
PROC: 0DJD8ZZ Inspection of Lower Intestinal Tract, Via Natural or Artificial Opening Endoscopic (ICD-10-PCS; CPT 45378; principal; 2020-12-27 13:30)
DX: K59.00 Constipation, unspecified (principal); K63.5 Polyp of colon; R07.9 Chest pain, unspecified; E11.9 Type 2 diabetes mellitus without complications; R10.9 Unspecified abdominal pain; E78.5 Hyperlipidemia, unspecified; F43.10 Post-traumatic stress disorder, unspecified; G47.33 Obstructive sleep apnea (adult) (pediatric); I10 Essential (primary) hypertension; I25.10 Atherosclerotic heart disease of native coronary artery without angina pectoris; Z95.1 Presence of aortocoronary bypass graft; Z95.2 Presence of prosthetic heart valve; Z79.4 Long term (current) use of insulin; Z79.01 Long term (current) use of anticoagulants; M06.9 Rheumatoid arthritis, unspecified
CPT/HCPCS: 45378; 36415; 36430; 71045; 74177; 80048; 80053; 81001; 82948; 83690; 83735; 84484; 85025; 85027; 85610; 85730; 86900; 86901; 87077; 87086; 87088; 87186; 88305; 93005; 96361; 96372; 96374; 96375; 99285; A9270; G0378; J0131; J0290; J1580; J1650; J2001; J2060; J2704; J7030; J7050; J7120; P9017; Q9967

== ENCOUNTER 2021-02-07 09:09 | Outpatient (RCR) | payer OTHER, SELFPAY ==
[2021-02-07 09:44] LABS: INR 2.1; Prothrombin Time 22.8 Seconds (11.1-14.7)
== END 2021-05-08 23:59 | disposition home or self-care (01) ==
LOC: ANHLAB 09:09
PROVIDERS: Visit Provider Internal Medicine Cardiovascular Disease
DX: Z51.81 Encounter for therapeutic drug level monitoring (principal); I47.1 Supraventricular tachycardia; Z95.2 Presence of prosthetic heart valve; Z79.01 Long term (current) use of anticoagulants
CPT/HCPCS: 36415; 85610

== ENCOUNTER 2021-02-20 08:49 | Outpatient (CLI) | payer OTHER, SELFPAY ==
--- NOTE | 2021-02-20 | ECG_ITS ---
Measurements Intervals [place] Rate: 67 P: 60 FL: 171 QRS: -11 QRSD: 101 T: 110 QT: 437 QTc: 465 Interpretive Statements SINUS RHYTHM LEFT VENTRICULAR HYPERTROPHY AND ST-T CHANGE BORDERLINE R WAVE PROGRESSION, ANTERIOR LEADS BASELINE ARTIFACT- V3 BORDERLINE ECG Electronically Signed On 02-20-2021 10:26:51 CDT by Beka Ramsay D.O.
--- NOTE | ~2021-02-20 | XR_ITS ---
EXAMINATION: XR thoracic spine 3V DATE: 02/20/2021 10:41 INDICATION: Other rheumatoid arthritis with rheumatoid factor TECHNIQUE: AP, lateral and lateral swimmer's views of the thoracic spine were obtained. COMPARISON: None. FINDINGS: There is no fracture, dislocation, or subluxation. There is mild anterior wedging in the mi dthoracic spine. Mild loss of intervertebral disc space height is also noted at a few levels in the m idthoracic spine. Small degenerative osteophytes project from the anterior endplates of multiple vert ebral bodies. Changes of cardiac valve surgery are noted. IMPRESSION: 1. Mild thoracic spondylosis without acute findings. Reviewed, dictated and finalized at location A.
--- NOTE | ~2021-02-20 | XR_ITS ---
EXAMINATION: XR lumbar spine 2-3V DATE: 02/20/2021 10:41 INDICATION: Rheumatoid arthritis without rheumatoid factor TECHNIQUE: Anteroposterior and lateral views of the lumbar spine, and cone-down lateral view of the l umbosacral junction were obtained. COMPARISON: None. FINDINGS: There are 3 mm of retrolisthesis of L5 on S1. Bone alignment is otherwise normal. The verte bral body heights are maintained. There is mild loss of intervertebral disc space height at L4-5 and L5-S1. Calcified atherosclerosis is noted. There is mild facet osteoarthritis of the lower lumbar spi ne. IMPRESSION: 1. Mild lumbar spondylosis without acute findings. Reviewed, dictated and finalized at location A.
[2021-02-20 10:22] LABS: Cholesterol 165 mg/dL (0-200); HDL Direct 95 mg/dL; Triglycerides 115 mg/dL (<150)
[2021-02-20 10:31] LABS: Parathyroid Intact 35.8 pg/mL (7.5-53.5)
[2021-02-20 10:33] LABS: LDL Cholesterol Direct 57 mg/dL
[2021-02-20 10:40] LABS: Iron 67 ug/dL (37-170)
[2021-02-20 10:49] LABS: Percent Iron Saturation 16 % (20-50)
[2021-02-20 12:50] LABS: Vitamin D 25 Hydroxy 36.8 ng/mL
== END 2021-02-20 08:50 | disposition home or self-care (01) ==
PROVIDERS: Referring Provider Internal Medicine; Visit Provider Nurse Practitioner Adult Health
DX: E11.65 Type 2 diabetes mellitus with hyperglycemia (principal); M47.817 Spondylosis without myelopathy or radiculopathy, lumbosacral region; M47.815 Spondylosis without myelopathy or radiculopathy, thoracolumbar region; Z51.81 Encounter for therapeutic drug level monitoring; Z79.4 Long term (current) use of insulin; K21.9 Gastro-esophageal reflux disease without esophagitis; I10 Essential (primary) hypertension; E78.2 Mixed hyperlipidemia; M05.89 Other rheumatoid arthritis with rheumatoid factor of multiple sites; Z68.42 Body mass index [BMI] 45.0-49.9, adult; G47.33 Obstructive sleep apnea (adult) (pediatric); I51.7 Cardiomegaly
CPT/HCPCS: 36415; 72072; 72100; 80061; 82306; 82607; 82728; 83036; 83540; 83550; 83970; 84443; 93005

== ENCOUNTER 2022-04-24 09:55 | Outpatient (CLI) | payer OTHER, SELFPAY ==
[2022-04-24 10:49] LABS: Anion Gap 6 mmol/L (8-16); Blood Urea Nitrogen 15 mg/dL (7-17); Calcium 9.5 mg/dL (8.4-10.2); Carbon Dioxide 29 mmol/L (22-30); Chloride 102 mmol/L (98-107); Cholesterol 132 mg/dL (0-200); Estimated Glomerular Filt Rate > 60; Glucose 149 mg/dL (65-110); HDL Direct 65 mg/dL; Potassium 4.5 mmol/L (3.4-5.0); Sodium 137 mmol/L (137-145); Triglycerides 108 mg/dL (<150)
[2022-04-24 11:00] LABS: LDL Cholesterol Direct 43 mg/dL
[2022-04-24 11:49] LABS: Creatinine Urine 212.9 mg/dL
[2022-04-24 11:52] LABS: Microalbumin Urine Random 29.8 mg/L (0-16.7)
== END 2022-04-24 09:56 | disposition home or self-care (01) ==
LOC: ANHLAB 09:56
PROVIDERS: PCP Family Medicine; Visit Provider Internal Medicine Endocrinology, Diabetes & Metabolism
DX: E11.65 Type 2 diabetes mellitus with hyperglycemia (principal); Z79.4 Long term (current) use of insulin; E78.5 Hyperlipidemia, unspecified; K76.0 Fatty (change of) liver, not elsewhere classified
CPT/HCPCS: 36415; 80048; 80061; 82043; 82607; 84443

== ENCOUNTER 2022-09-25 16:52 | Emergency (ER) | payer OTHER, SELFPAY ==
[2022-09-25 17:04] VITALS: BP 117/82; PULSE 73; RESP 18; TEMP 36.5; O2SAT 98
[2022-09-25 17:16] LABS: Basophils Absolute Auto 0.1 K/mm3 (0.0-0.1); Basophils Percent Auto 0.5 % (0.2-1.2); Eosinophils Absolute Auto 0.3 K/mm3 (0-0.3); Hematocrit 37.2 % (37.0-47.0); Hemoglobin 12.5 g/dL (12.0-15.0); Immature Granulocyte Absolute 0.02 K/mm3 (0.00-0.031); Immature Granulocyte Percent A 0.2 % (0-0.5); Lymphocytes Absolute Auto 3.19 K/mm3 (0.9-3.2); Lymphocytes Percent Auto 32.9 % (18.3-44.2); Mean Corpuscular HGB Conc 33.6 g/dl (32-36); Mean Corpuscular Hemoglobin 31.9 pg (26-34); Mean Corpuscular Volume 94.9 fl (80-100); Mean Platelet Volume 8.8 fl (7.4-10.4); Monocytes Absolute Auto 0.7 K/mm3 (0.1-0.6); Monocytes Percent Auto 7.5 % (2.6-8.5); Neutrophils Absolute Auto 5.4 K/mm3 (1.3-6.7); Neutrophils Percent Auto 55.9 % (45.5-73.1); Platelet Count Result 199 k/mm3 (150-375); Red Blood Count 3.92 M/mm3 (4.2-5.4); Red Cell Distribution Width 12.8 % (11.5-14.5); White Blood Count 9.7 K/mm3 (4.5-10.0)
[2022-09-25 17:28] LABS: Prothrombin Time 63.9 Seconds (11.1-14.7)
[2022-09-25 17:31] LABS: Alanine Aminotransferase 24 U/L (6-35); Albumin Level 4.5 g/dL (3.5-5.1); Alkaline Phosphatase 77 U/L (38-126); Anion Gap 9 mmol/L (8-16); Aspartate Amino Transferase 28 U/L (14-36); Bilirubin,Total 0.5 mg/dL (0.2-1.3); Blood Urea Nitrogen 13 mg/dL (7-17); Calcium 9.7 mg/dL (8.4-10.2); Carbon Dioxide 25 mmol/L (22-30); Chloride 103 mmol/L (98-107); Estimated CRCL calculation 90 ml/min; Estimated Glomerular Filt Rate > 60; Glucose 134 mg/dL (65-110); INR 6.5; Sodium 137 mmol/L (137-145)
--- NOTE | 2022-09-25 18:24 | ED.GENADULT ---
HPI - General Adult General Chief complaint: Recheck/Abnormal Lab/Rx Stated complaint: INR 8.0 Time Seen by Provider: 09/25/22 17:36 History of Present Illness HPI narrative: Patient is a 57-year-old female who presents ER with elevated INR. 2 days ago she began having elevated readings on home machine. She continue take her medication and after contacting the technical translator today they recommended she come to the ER. No bruising or bleeding. She reports that she takes medication for mechanical heart valve. She has no additional concerns at this time. Dr. Llamas manages her INR. Related Data Home Medications Medication Instructions Recorded Confirmed aspirin 81 mg tablet,delayed 81 mg PO DAILY 08/02/19 09/10/22 release metoprolol tartrate 25 mg tablet 25 mg PO BID 08/02/19 09/10/22 trazodone 100 mg tablet 300 mg PO HS 11/07/19 09/10/22 lamotrigine 100 mg tablet 100 mg PO DAILY 02/15/20 09/10/22 alprazolam 0.25 mg tablet 0.25 mg PO .prn 04/30/20 09/10/22 multivitamin with minerals-folic 1 tablet PO DAILY 06/20/20 09/10/22 acid 120 mcg chewable tablet (Centrum Adult 50 Plus Fresh-Fruity) golimumab 12.5 mg/mL intravenous 12.5 mg IV [id number] 12/25/20 09/10/22 solution (Simponi ARIA) nitroglycerin 0.4 mg sublingual 0.4 mg sublingual Q5M PRN Chest 12/26/20 09/10/22 tablet Pain venlafaxine 75 mg tablet,extended 75 mg PO QPM 12/27/20 09/10/22 release 24 hr psyllium husk 0.4 gram capsule 0.4 g PO QHS 01/02/21 09/10/22 (Metamucil) warfarin 5 mg tablet 5 mg PO .COMPLEX 05/05/21 09/10/22 azathioprine 50 mg tablet 50 mg PO DAILY 08/18/22 09/10/22 diclofenac sodium 2 % topical 1 packet topical BID 08/18/22 09/10/22 solution in packet (Pennsaid) hydroxychloroquine 200 mg tablet 200 mg PO DAILY 08/18/22 09/10/22 tramadol 50 mg tablet 50 mg PO Q6H PRN 08/18/22 09/10/22 Allergies Allergy/AdvReac Type Severity Reaction Status Date / Time No Known Allergies Allergy Verified 09/25/22 16:52 Review of Systems Review of Systems: All systems reviewed & are unremarkable except as noted in HPI and below Constitutional: Constitutional: Denies chills and Denies fever(s) Cardiovascular: Cardiovascular: Denies chest pain, Denies rapid heart rate and Denies radiating jaw, neck or arm pain Respiratory: Respiratory: Denies cough and Denies dyspnea Hematologic/Lymphatic: Hematologic/Lymphatic: Denies easy bleeding and Denies easy bruising PMFSH Past Medical History Medical History Anxiety Arthritis Benign essential HTN Benign essential hypertension Colonic mass Complex posttraumatic stress disorder Coronary artery disease Status post 3 vessel bypass in 2018 at [facility]. Current use of bed bug exterminator anticoagulation Patient on warfarin due to presence of mechanical aortic valve. Depression Depressive psychosis Diabetes mellitus Diabetic retinopathy Fatty liver Hyperlipidemia Insulin dependent diabetes mellitus Hemoglobin A1c was 7.2% on 09/09/2020. Morbid obesity Rheumatoid arthritis Type 2 diabetes mellitus with hyperglycemia Surgical History Surgical History History of coronary artery bypass graft x 3 (2018) History of hysterectomy for benign disease History of mechanical aortic valve replacement (2018) Family History Family History Mother Breast cancer COPD (chronic obstructive pulmonary disease) Other Depression Diabetes mellitus Family history of alcoholism Family history of arthritis Family history of attention deficit hyperactivity disorder (ADHD) Family history of blood dyscrasia Family history of coronary artery disease Family history of kidney disease Family history of malignant neoplasm of breast in first degree relative Social History Social History
== END 2022-09-25 18:45 | disposition home or self-care (01) ==
PROVIDERS: Emergency Medicine; Emergency Provider Emergency Medicine
DX: R79.1 Abnormal coagulation profile (principal); I10 Essential (primary) hypertension; I25.10 Atherosclerotic heart disease of native coronary artery without angina pectoris; E11.319 Type 2 diabetes mellitus with unspecified diabetic retinopathy without macular edema; E78.5 Hyperlipidemia, unspecified; M06.9 Rheumatoid arthritis, unspecified; M19.90 Unspecified osteoarthritis, unspecified site; E66.01 Morbid (severe) obesity due to excess calories; Z68.41 Body mass index [BMI] 40.0-44.9, adult; F32.3 Major depressive disorder, single episode, severe with psychotic features; F41.9 Anxiety disorder, unspecified; F43.10 Post-traumatic stress disorder, unspecified; Z95.1 Presence of aortocoronary bypass graft; Z95.2 Presence of prosthetic heart valve; Z90.710 Acquired absence of both cervix and uterus; Z79.82 Long term (current) use of aspirin; Z79.01 Long term (current) use of anticoagulants; Z79.85 Long-term (current) use of injectable non-insulin antidiabetic drugs; Z79.4 Long term (current) use of insulin; Z79.84 Long term (current) use of oral hypoglycemic drugs
CPT/HCPCS: 36415; 80053; 85025; 85610; 99283

== ENCOUNTER 2022-10-12 15:02 | Emergency (ER) | payer OTHER, SELFPAY ==
--- NOTE | ~2022-10-12 | XR_ITS ---
EXAMINATION: XR chest 1V portable Exam Date/Time: 10/12/2022 20:04 CDT HISTORY: hemoptysis Comparison: 12/26/2020. RESULT: Lines, tubes, and devices: Intact sternotomy wires. Valve replacement. Mediastinal surgical clips. Lungs and pleura: Clear. Cardiomediastinal silhouette: Stable. Other: No acute osseous or upper abdominal finding. IMPRESSION: No acute cardiopulmonary process. Reviewed, dictated and finalized at location K.
--- NOTE | ~2022-10-12 | CT_ITS ---
EXAMINATION: CT brain wo con DATE: 10/12/2022 20:12 INDICATION: elevated INR, dizziness . TECHNIQUE: Computed tomography (CT) of the head was performed without intravenous contrast. The mA wa s adjusted according to patient size. Iterative reconstruction technique was employed. The dose-lengt h product was 605.33 mGy-cm. COMPARISON: None. FINDINGS: No acute intracranial hemorrhage or extra-axial fluid collection. No hydrocephalus, mass, or herniation. No acute ischemic infarct. Unremarkable dural venous sinus attenuation. No acute osseous abnormality. Mucosal thickening and air-fluid level in the left maxillary and sphenoid sinuses, the remaining aera ann-marie spaces are clear. Mild atrophy and chronic white matter change. Mild atherosclerotic intracranial calcification. IMPRESSION: No acute intracranial process. Paranasal sinus findings may represent acute sinusitis in the appropri ate clinical context. Reviewed, dictated and finalized at location K. IMPRESSION: No acute intracranial process. Paranasal sinus findings may represent acute sin usitis in the appropriate clinical context.
[2022-10-12 15:13] VITALS: BP 137/79; PULSE 68; RESP 18; TEMP 36.4; O2SAT 98
[2022-10-12 16:07] LABS: Partial Thromboplastin Time 50.8 SECONDS (22.3-36.8)
[2022-10-12 19:45] VITALS: BP 142/111; PULSE 62; RESP 18; TEMP 37; O2SAT 95
[2022-10-12 19:53] VITALS: O2SAT 100
--- NOTE | 2022-10-12 19:53 | PC.NURSE ---
Patient states her SOB started earlier today. Patient also states she is anxious.
--- NOTE | 2022-10-12 20:14 | ED.GENADULT ---
HPI - General Adult General Chief complaint: Recheck/Abnormal Lab/Rx <Cristo Hebert PA-C - Last Filed: 10/13/22 01:02> Stated complaint: INR abnormal <SKYE Cates Last Filed: 10/13/22 01:02> Time Seen by Provider: 10/12/22 19:46 <SKYE Cates Last Filed: 10/13/22 01:02> Source: patient <SKYE Cates Last Filed: 10/13/22 01:02> Mode of arrival: ambulatory <SKYE Cates Last Filed: 10/13/22 01:02> Limitations: no limitations <SKYE Cates Last Filed: 10/13/22 01:02> History of Present Illness HPI narrative: This is a 57-year-old female presents to the ED with chief complaint of supratherapeutic INR at 8.0 at home. Patient takes warfarin for aortic valve repair. Patient reports she has had some cough in the past few weeks. She feels that she may have had blood-tinged sputum with this cough.. Denies shortness of breath or chest pain. Denies any dark or tarry stools. Denies bloody stools. Denies abdominal pain or nausea or vomiting. She also reports she has had many months of intermittent dizziness. Seems to be worsened with position and head turning. Also endorses some minor bruises to the lower legs. Denies fevers, chills, numbness, weakness, LOC, injuries, falls. <SKYE Cates Last Filed: 10/13/22 01:02> Related Data Home medications: Home Medications Medication Instructions Recorded Confirmed aspirin 81 mg tablet,delayed 81 mg PO DAILY 08/02/19 09/10/22 release metoprolol tartrate 25 mg tablet 25 mg PO BID 08/02/19 09/10/22 trazodone 100 mg tablet 300 mg PO HS 11/07/19 09/10/22 lamotrigine 100 mg tablet 100 mg PO DAILY 02/15/20 09/10/22 alprazolam 0.25 mg tablet 0.25 mg PO .prn 04/30/20 09/10/22 multivitamin with minerals-folic 1 tablet PO DAILY 06/20/20 09/10/22 acid 120 mcg chewable tablet (Centrum Adult 50 Plus Fresh-Fruity) golimumab 12.5 mg/mL intravenous 12.5 mg IV [id number] 12/25/20 09/10/22 solution (Simponi ARIA) nitroglycerin 0.4 mg sublingual 0.4 mg sublingual Q5M PRN Chest 12/26/20 09/10/22 tablet Pain venlafaxine 75 mg tablet,extended 75 mg PO QPM 12/27/20 09/10/22 release 24 hr psyllium husk 0.4 gram capsule 0.4 g PO QHS 01/02/21 09/10/22 (Metamucil) warfarin 5 mg tablet 5 mg PO .COMPLEX 05/05/21 09/10/22 azathioprine 50 mg tablet 50 mg PO DAILY 08/18/22 09/10/22 diclofenac sodium 2 % topical 1 packet topical BID 08/18/22 09/10/22 solution in packet (Pennsaid) hydroxychloroquine 200 mg tablet 200 mg PO DAILY 08/18/22 09/10/22 tramadol 50 mg tablet 50 mg PO Q6H PRN 08/18/22 09/10/22 <Cristo Hebert PA-C - Last Filed: 10/13/22 01:02> Allergies/adverse reactions: Allergies Allergy/AdvReac Type Severity Reaction Status Date / Time No Known Allergies Allergy Verified 09/25/22 16:52 <Cristo Hebert PA-C - Last Filed: 10/13/22 01:02> Review of Systems Review of Systems: CONSTITUTIONAL: Denies fever, chills, or sweats. EYES: Denies visual changes, redness, or discharge. ENT: Denies rhinorrhea, congestion, sore throat, or otalgia. CARDIOVASCULAR: Denies chest pain, palpitations, or edema. RESPIRATORY: See HPI GASTROINTESTINAL: Denies abdominal pain, nausea, vomiting, or diarrhea. GENITOURINARY: Denies dysuria or hematuria. SKIN: Denies rash or itching. MUSCULOSKELETAL: Denies back pain, joint pain, or myalgia. NEUROLOGIC: Denies headache, numbness, dizziness, or weakness. PSYCHIATRIC: Denies anxiety or depression. <Cristo Hebert PA-C - Last Filed: 10/13/22 01:02> [facility] Past Medical History Medical History: Medical History Anxiety Arthritis Benign essential HTN Benign essential hypertension Colonic mass Complex posttraumatic stress disorder Coronary artery disease Status post 3 vessel bypass in [address] [facility]. Current use of termite inspector anticoagulation Patient on warfarin due to presence o
[2022-10-12] MEDS: MECLIZINE HCL 25 MG TABLET PO (20:17)
[2022-10-12] MEDS: SODIUM CHLORIDE 0.9% IV 1,000 ML 999 ML IV CONT (20:27)
[2022-10-12 20:36] LABS: Basophils Absolute Auto 0.1 K/mm3 (0.0-0.1); Basophils Percent Auto 0.8 % (0.2-1.2); Eosinophils Absolute Auto 0.3 K/mm3 (0-0.3); Eosinophils Percent Auto 4.2 % (0-4.4); Hematocrit 39.3 % (37.0-47.0); Hemoglobin 12.8 g/dL (12.0-15.0); Immature Granulocyte Absolute 0.02 K/mm3 (0.00-0.031); Immature Granulocyte Percent A 0.3 % (0-0.5); Lymphocytes Percent Auto 39.2 % (18.3-44.2); Mean Corpuscular HGB Conc 32.6 g/dl (32-36); Mean Corpuscular Hemoglobin 31.3 pg (26-34); Mean Corpuscular Volume 96.1 fl (80-100); Monocytes Absolute Auto 0.4 K/mm3 (0.1-0.6); Monocytes Percent Auto 5.2 % (2.6-8.5); Neutrophils Absolute Auto 3.9 K/mm3 (1.3-6.7); Neutrophils Percent Auto 50.3 % (45.5-73.1); Platelet Count Result 190 k/mm3 (150-375); Red Blood Count 4.09 M/mm3 (4.2-5.4); Red Cell Distribution Width 13.6 % (11.5-14.5); White Blood Count 7.7 K/mm3 (4.5-10.0)
[2022-10-12 20:47] LABS: Alanine Aminotransferase 35 U/L (6-35); Albumin Level 4.7 g/dL (3.5-5.1); Alkaline Phosphatase 74 U/L (38-126); Anion Gap 8 mmol/L (8-16); Aspartate Amino Transferase 50 U/L (14-36); Bilirubin,Total 0.4 mg/dL (0.2-1.3); Blood Urea Nitrogen 14 mg/dL (7-17); Calcium 9.5 mg/dL (8.4-10.2); Carbon Dioxide 29 mmol/L (22-30); Chloride 100 mmol/L (98-107); Estimated CRCL calculation 62 ml/min; Estimated Glomerular Filt Rate > 60; Glucose 114 mg/dL (65-110); Potassium 4.6 mmol/L (3.4-5.0); Sodium 137 mmol/L (137-145)
[2022-10-12] MEDS: PHYTONADIONE 2.5 MG TAB PO (21:29)
[2022-10-12 21:41] VITALS: BP 164/82; PULSE 58; RESP 18; O2SAT 98
== END 2022-10-12 21:44 | disposition home or self-care (01) ==
PROVIDERS: Emergency Medicine; Emergency Provider Physician Assistant
DX: R42 Dizziness and giddiness (principal); T45.511A Poisoning by anticoagulants, accidental (unintentional), initial encounter; F41.9 Anxiety disorder, unspecified; Z79.01 Long term (current) use of anticoagulants; M19.90 Unspecified osteoarthritis, unspecified site; I10 Essential (primary) hypertension; I25.10 Atherosclerotic heart disease of native coronary artery without angina pectoris; F32.A Depression, unspecified; E11.9 Type 2 diabetes mellitus without complications; Z79.4 Long term (current) use of insulin
CPT/HCPCS: 36415; 70450; 71045; 80053; 85025; 85610; 85730; 96360; 99284; A9270; J7030

== ENCOUNTER → 2022-11-04 06:49 | Outpatient (CLI) | payer OTHER, SELFPAY ==
--- NOTE | ~2022-11-04 | MM_ITS ---
EXAMINATION: MM screening zaki BI w chago HISTORY: Screening mammogram TECHNIQUE: Craniocaudal and mediolateral oblique 3-D tomosynthesis images were obtained and synthetic 2-D images were generated. CAD analysis was submitted and interpreted. COMPARISON: 05/31/2020, 02/20/2019, 12/07/2017 bilateral screening mammogram examinations BREAST PARENCHYMAL COMPOSITION: There are scattered areas of fibroglandular density. FINDINGS: Again noted are scattered bilateral benign calcifications. There is no evidence of suspicio us mass, calcification, or architectural distortion to suggest malignancy in either breast. There has been no suspicious interval change. IMPRESSION: 1. No mammographic evidence of malignancy. 2. Recommend routine screening mammography in one year. BI-RADS Category 1: Negative Reviewed, dictated and finalized at location A.
== END ==
PROVIDERS: PCP Obstetrics & Gynecology Gynecology; Visit Provider Obstetrics & Gynecology Gynecology
DX: Z12.31 Encounter for screening mammogram for malignant neoplasm of breast (principal)
CPT/HCPCS: 77063; 77067

== ENCOUNTER 2023-06-25 11:31 | Outpatient (CLI) | payer OTHER, SELFPAY ==
[2023-06-25 12:36] LABS: INR 3.4; Prothrombin Time 37.2 Seconds (11.1-14.7)
== END 2023-06-25 11:32 | disposition home or self-care (01) ==
LOC: ANHLAB 11:35
PROVIDERS: PCP Obstetrics & Gynecology Gynecology; Visit Provider Internal Medicine Cardiovascular Disease
DX: Z79.01 Long term (current) use of anticoagulants (principal)
CPT/HCPCS: 36415; 85610